=== PATIENT | male | born 1990 | race Caucasian/White ===

== ENCOUNTER 2021-04-12 21:22 | Emergency (ER) | payer SELFPAY ==
[~2021-04-12] VITALS: Ht 177.8 cm; Wt 74.8 kg
[~2021-04-12 21:22] MED LIST: Bentyl20 MG PO; Cleocin HCl300 MG PO; Flagyl500 MG PO; IBUP600 PO; Keflex500 MG PO; Norco 5-325 Ta1 EACH PO
[2021-04-13] MEDS ORDERED: IBUP600 PO (00:15)
== END 2021-04-13 00:35 | disposition home or self-care (01) ==
LOC: ER 21:22
DX: T14.8XXA Other injury of unspecified body region, initial encounter (principal); W17.81XA Fall down embankment (hill), initial encounter; U07.1 COVID-19
CPT/HCPCS: 72040; 99284-25